=== PATIENT | female | born 1960 | race Caucasian/White ===

== ENCOUNTER → 2017-01-13 | Outpatient (CLI) | payer BC ==
[~2017-01-13] MED LIST: ADD/10 PO; PRED20TA PO
== END | disposition home or self-care (01) ==
LOC: C.PAPS 13:52
PROVIDERS: ATTEND Obstetrics & Gynecology
DX: Z01.419 Encounter for gynecological examination (general) (routine) without abnormal findings (principal)

== ENCOUNTER → 2017-02-17 | Outpatient (CLI) | payer BC | END | disposition home or self-care (01) | LOC: C.RDSM 10:21 | PROVIDERS: ATTEND Orthopaedic Surgery Sports Medicine | DX: M79.671 Pain in right foot (principal) ==

== ENCOUNTER → 2017-09-07 | Outpatient (CLI) | payer BC ==
--- NOTE | 2017-09-08 15:09 | MAMMOGRAPHY REPORT ---
BILATERAL DIGITAL SCREENING MAMMOGRAM TOMOSYNTHESIS WITH CAD: 09/07/2017 CLINICAL HISTORY: Routine screening. Patient has no complaints. TECHNIQUE: Breast tomosynthesis in addition to standard 2D mammography was performed. Current study was also evaluated with a Computer Aided Detection (CAD) system. COMPARISON: Comparison is made to exams dated: 09/02/2016 mammogram, 09/13/2015 mammogram, 08/31/2015 mammogram, 08/29/2014 mammogram, 03/07/2014 mammogram, and 09/05/2013 mammogram - [facility]. BREAST COMPOSITION: The tissue of both breasts is heterogeneously dense, which may obscure small mas ses. FINDINGS: There is a stable grouping of microcalcifications in the anterior left breast, and stable r egional punctate microcalcifications throughout the middle and anterior right breast. No new suspici ous mass, architectural distortion or cluster of microcalcifications is seen. IMPRESSION: ACR BI-RADS CATEGORY 1: NEGATIVE There is no mammographic evidence of malignancy. A 1 year screening mammogram is recommended. The pa tient will receive written notification of the results. Approximately 10% of breast cancers are not detected with mammography. A negative mammographic report should not delay biopsy if a clinically suggestive mass is present. Dior Borges M.D. ay/:09/07/2017 16:03:06 Meal Packer: Carol KELLY(Ewa)(Brandy)(BD), [facility] letter sent: Normal 1/2 BI-RADS Code: ACR BI-RADS Category 1: Negative
== END | disposition home or self-care (01) ==
LOC: C.MAMM 11:02
PROVIDERS: ATTEND Obstetrics & Gynecology
DX: Z12.31 Encounter for screening mammogram for malignant neoplasm of breast (principal)

== ENCOUNTER 2018-05-09 21:55 | Emergency (ER) | payer BC, OTHER ==
[~2018-05-09] VITALS: Ht 162.6 cm; Wt 61.8 kg
[2018-05-09 22:03] VITALS: TEMP 36.7; Ht 162.6 cm; Wt 61.8 kg
--- NOTE | 2018-05-09 22:36 | EMERGENCY ROOM VISIT NOTE ---
History Report prepared by Vyibisabel: Neel Miller Under the Supervision of: Dr. Dre Ortiz M.D. First contact with patient: 22:09 Chief Complaint: TOE PAIN, INJURY Stated Complaint: PAIN IN BIG TOE-DROPPED METAL ON IT History of Present Illness The patient is a 57 year old female who presents to the Emergency Room with complaints of a constant left great toe pain that began recently after she dropped a metal paper towel pollard onto her foot. Patient is present with her . states the patient felt dizzy following the incident. He adds the patient sat down, vomited, and passed out. He states the patient's eyes "rolled to the back of her head" and she "lost all color". He denies the patient hitting her head as she was sitting on the couch when the syncope episode occurred. Patient states she took 3 Advil but they have not relieved her pain. Patient denies chest pain or SOB. Patient denies a cardiac or medical history. Source of History: patient Onset: Recent Position: toe(s) (Left great toe) Timing: constant Modifying Factors (Relieving): other (None) Associated Symptoms: + LOC, + vomiting, No chest pain, No SOB Review of Systems See HPI for pertinent positives and negatives. A total of ten systems were reviewed and were otherwise negative. Past Medical & Surgical No pertinent past medical & surgical history. Family History Patient reports no known family medical history. Social History Smoking Status: Never Smoker Marital Status: Housing Status: lives with family Current/Historical Medications Scheduled Amphetamine-Dextroamphetamine 20MG (Adderall Xr 20MG), 20 MG PO DAILY Multivitamin (Multivitamin), 1 TAB PO DAILY Scheduled PRN Ibuprofen Tab (Advil), 400-600 MG PO Q6H PRN for Pain Allergies Coded Allergies: Penicillins (Verified Allergy, Intermediate, Rash, 05/09/18) Sulfa Drugs (Verified Allergy, Mild, RASH, 11/16/09) Physical Exam Vital Signs Date Time Temp Pulse Resp B/P (MAP) Pulse Ox O2 Delivery O2 Flow Rate FiO2 05/09/18 23:28 66 108/65 95 05/09/18 22:03 36.7 77 18 115/74 97 Room Air Physical Exam Physical Exam GENERAL: She is oriented to person, place, and time. She appears well- developed and well-nourished. She does not appear distressed. HENT: Exam performed. Head: Normocephalic and atraumatic. Right Ear: External ear normal. No mastoid tenderness. Left Ear: External ear normal. No mastoid tenderness. Mouth/Throat: The oropharynx is clear and moist. No trismus in the jaw. No dental abscesses or uvula swelling. No oropharyngeal exudate or tonsillar abscesses. EYES: Conjunctivae and EOM are normal. Pupils are equal, round, and reactive to light. Right eye exhibits no discharge. Left eye exhibits no discharge. No scleral icterus. NECK: Normal range of motion. Neck supple. No JVD present. No spinous process tenderness present. No carotid bruit present. No rigidity. No tracheal deviation and normal range of motion present. No Brudzinski's sign and no Kernig 's sign noted. CV: Normal rate, regular rhythm, normal heart sounds and intact distal pulses. There is no peripheral edema. Palpable radial pulses bue. PULM/CHEST: Effort normal and breath sounds normal. No respiratory distress. No stridor. She has no wheezes. She has no rales. Chest Wall: She exhibits no tenderness. ABD: The abdomen is soft. Bowel sounds are normal. She has no distension. No mass is present. There is no tenderness. There is no rebound, no guarding, no Rosenberg's sign and no tenderness at McBurney's point. Rovsig negative MUSC/SKEL: Pain on palpation of the left great toe. No pain to metatarsal or medial/lateral malleolus. Palpable DP and PT pulses otherwise normal range of motion. There is no peripheral edema, tenderness or deformity. LYMPH: No cervical adenopathy. NEURO: She is alert and oriented to person, place, and time. She has normal strength. No cranial nerve deficit or sensory deficit. Coordination and gait normal. GCS eye subscore is 4. GCS verbal subscore is 5. GCS motor subscore is 6. Cerebellar tests wnl. SKIN: Skin is warm and dry. She is not diaphoretic. PSYCH: She has a normal mood and affect. Behavior is normal. Judgment and thought content normal. Medical Decision & Procedures ER Provider Diagnostic Interpretation: Radiology results as stated below per my review and interpretation: TOE X-RAY: X-ray shows no fracture or dislocation. Laboratory Results Test 05/09/18 22:50 Bedside Hemoglobin 12.9 g/dl (12.0-16.0) Bedside Hematocrit 38 % (37-47) Bedside Sodium 135 mEq/L (135-144) Bedside Potassium 3.8 mEq/L (3.3-5.0) Bedside Chloride 98 mEq/L (101-112) Bedside Total CO2 25 mEq/l (24-31) Anion Gap 17.0 mmol/L (16-25) Bedside Blood Urea Nitrogen 21 mg/dl (7-18) Bedside Creatinine 0.7 mg/dl (0.6-1.3) Bedside Glucose (other) 109 mg/dl (70-99) Bedside Ionized Calcium (Alexandra) 1.15 mmol/l (1.12-1.32) Laboratory results reviewed by me ECG Per My Interpretation Indication: syncope Rate (beats per minute): 67 Rhythm: sinus rhythm Findings: other (MS, QRS, QTc are within normal limits; mild left atrial enlargement; no ST segment elevation/depression) ED Course 2213: The patient was evaluated in room B10. A complete history and physical exam was performed. 2232: Labs show lpesaj=267, potassium = 3.8, chloride = 98, co2= 25, BUN = 21, creatinine = 0.7, and hemoglobin = 12.9. 2321: I reevaluated the patient. Patient's vital signs are stable. EKG and imaging are within normal limits. Patient was discharged with a walking boot and encouraged to follow-up up with her PCP. DISCHARGE - Plan of care discussed with patient and questions answered. The patient was given both verbal and printed discharge instructions. The patient verbalized understanding and ability to comply. The patient is to seek outpatient follow up as noted in the discharge instructions. The patient verbalized understanding and ability to comply. The patient is discharged in stable condition. The patient was instructed to return for worsening symptoms. Medical Decision ital signs are stable. EKG and imaging are within normal limits. Patient was discharged with a walking boot and encouraged to follow-up up with her PCP. DISCHARGE - Plan of care discussed with patient and questions answered. The patient was given both verbal and printed discharge instructions. The patient verbalized understanding and ability to comply. The patient is to seek outpatient follow up as noted in the discharge instructions. The patient verbalized understanding and ability to comply. The patient is discharged in stable condition. The patient was instructed to return for worsening symptoms. Medication Reconcilliation Current Medication List: was personally reviewed by me Blood Pressure Screening Patient's blood pressure: Normal blood pressure Blood pressure disposition: Did not require urgent referral Impression Primary Impression: Toe contusion Additional Impression: Syncope Scribe Attestation The scribe's documentation has been prepared under my direction and personally reviewed by me in its entirety. I confirm that the note above accurately reflects all work, treatment, procedures, and medical decision making performed by me. The chart was completed utilizing [employer] voice recognition software. Grammatical errors, random word insertions, pronoun errors, and incomplete sentences are an occasional consequence of this system due to software limitations, ambient noise, and hardware issues. Any formal questions or concerns about the content, text, or information contained within the body of this dictation should be directly addressed to the physician for clarification. Departure Information Dispostion Home / Self-Care Referrals Jeanine Hernandez M.D.(SERVICE SECRETARY/OB) (PCP) Forms HOME CARE DOCUMENTATION FORM, IMPORTANT VISIT INFORMATION, WORK / SCHOOL INSTRUCTIONS Patient Instructions ED Contusion Lower Ext, [facility], Syncope Causes Problem Qualifiers Primary Impression: Toe contusion Encounter type: initial encounter Toe: great toe Damage to nail status: without damage Laterality: unspecified laterality Qualified Codes: S90.119A - Contusion of unspecified great toe without damage to nail, initial encounter Additional Impression: Syncope Syncope type: unspecified Qualified Codes: R55 - Syncope and collapse
[2018-05-09] MEDS ORDERED: AMPH20CA3 PO (22:47)
[2018-05-09] MEDS ORDERED: MULT-506 PO (22:47)
[2018-05-09] MEDS ORDERED: IBUP-103 PO (22:47)
[2018-05-09 23:07] LABS: ISTAT CREATININE 0.7 mg/dl (0.6-1.3); ISTAT IONIZED CALCIUM 1.15 mmol/l (1.12-1.32); ISTAT POTASSIUM 3.8 mEq/L (3.3-5.0)
[2018-05-09 23:28] VITALS: BP 108/65; PULSE 66; O2SAT 95
--- NOTE | 2018-05-10 06:28 | DIAGNOSTIC IMAGING REPORT ---
L TOE(S) MIN 2 VIEWS CLINICAL HISTORY: object fell on great toe COMPARISON: None. DISCUSSION: The bones and joint spaces appear intact. There is no evidence of fracture, dislocation or bony disease. Mild soft tissue edema IMPRESSION: Negative study. No acute bony abnormality. Mild soft tissue edema. The above report was generated using voice recognition software. It may contain grammatical, syntax or spelling errors. Electronically signed by: Huang Brizuela M.D. 05/10/2018 6:27 AM Dictated Date/Time: 05/10/2018 6:25 AM
== END 2018-05-09 23:29 | disposition home or self-care (01) ==
LOC: C.EDB 21:57
DX: S90.112A Contusion of left great toe without damage to nail, initial encounter (principal); W20.8XXA Other cause of strike by thrown, projected or falling object, initial encounter; R11.10 Vomiting, unspecified; R55 Syncope and collapse; Z79.899 Other long term (current) drug therapy; Z88.0 Allergy status to penicillin; Z88.2 Allergy status to sulfonamides